=== PATIENT | male | born 1995 | race Caucasian/White ===

== ENCOUNTER 2019-10-08 06:24 | Day surgery (SDC) | payer BC ==
[2019-10-01 14:40] VITALS: BMI 39.5
--- NOTE | 2019-10-07 14:25 | HP ---
HISTORY OF PRESENT ILLNESS: Mr. Giles is a 24-year-old man here today for evaluation of roughly six weeks worth of severe lower back pain that radiates into the left lower extremity when sitting or standing for more than a few minutes, it became severe enough that as of August 21 he stopped working. He has treated this with time and recently with epidural steroid injections which provided momentary relief but still is in significant pain. MRI from the [facility] reveals a large left mediated central disk herniation at L5 that encompasses roughly 40% of the spinal canal at this level and well explains his symptoms. PAST MEDICAL HISTORY: Significant for chronic pain, but no other major medical problems. PAST SURGICAL HISTORY: Jaw surgery to correct an underbite. CURRENT MEDICATIONS: Medrol and Tylenol No.3. ALLERGIES: NO KNOWN DRUG ALLERGIES. PHYSICAL EXAMINATION: GENERAL: The patient is alert and oriented x3, but has a severely antalgic gait favoring the left lower extremity. Positive straight leg raise is avid. Lower extremity motor exam, however, is normal. He has 5/5 strength in all muscle movements of bilateral lower extremities including knee extension, knee flexion, or plantar and dorsiflexion of the ankle. No obvious sensory disturbance when grossly tested. ASSESSMENT: Lumbar disk herniation and radiculopathy. PLAN: Dr. Hawthorne met with the patient, reviewed imaging, advocated for left L5 diskectomy. He explained to the patient the risks, benefits, and alternatives to the procedure. The patient expressed understanding and elected to move forward with surgery as discussed. I do believe the patient is mentally competent and capable of making medical decisions for himself. We will move forward with surgery as planned. Job ID: [id number]
[2019-10-08] MEDS ORDERED: Lidocaine 1% w/Epinephrine 1:100K 20 ML VIAL ONE (06:32)
[2019-10-08] MEDS ORDERED: Bupivacaine PF 0.5% 30 ML VIAL ONE (06:32)
[2019-10-08] MEDS ORDERED: Lidocaine 2% Jelly 5 ML TUBE ONE ×2 (06:32→07:09)
[2019-10-08] MEDS ORDERED: EPINEPHrine 1 MG/ML AMP ONE (06:32)
[2019-10-08] MEDS ORDERED: Sodium Chloride 0.9% 0 ML ONE (07:09)
[2019-10-08] MEDS ORDERED: Fentanyl 100 MCG/2 ML VIAL ONE ×4 (07:09→10:50)
[2019-10-08] MEDS ORDERED: PROPOFOL 200 MG/20 ML VIAL ONE (10:10)
[2019-10-08] MEDS ORDERED: Ondansetron PF 4 MG/2 ML Vial ONE (10:10)
[2019-10-08] MEDS ORDERED: Lidocaine 1% PF 5 ML VIAL ONE (10:10)
[2019-10-08] MEDS ORDERED: Glycopyrrolate 0.2 MG/ML 5 ML SYRINGE ONE (10:10)
[2019-10-08] MEDS ORDERED: Rocuronium Bromide 10 MG/ML (10ML VIAL) ONE (10:10)
[2019-10-08] MEDS ORDERED: Ketorolac Tromethamine 30 MG/ML VIAL ONE (10:10)
[2019-10-08] MEDS ORDERED: Dexamethasone 20 MG/5 ML VIAL ONE (10:10)
[2019-10-08] MEDS ORDERED: Tamsulosin HCl 0.4 MG CAP ONE (10:22)
[2019-10-08] MEDS ORDERED: HYDROcodone/Acetaminophen 5/325 mg Tablet ONE (12:52)
--- NOTE | 2019-10-08 13:17 | OP ---
DATE OF PROCEDURE: 10/08/2019 MITER SAWYER: Hong Valenzuela PA-C INDICATION: Pain. DIAGNOSIS: Lumbar radiculopathy. PROCEDURE PERFORMED: Left L5 diskectomy. ANESTHESIA: General. DESCRIPTION OF PROCEDURE: The patient was brought into the operating room and placed under general anesthesia. He was flipped from the supine to prone position on the operating room table. A linear incision was planned over the L5-S1 segment. After prepping and draping and after an appropriate perioperative pause, the incision was created. The soft tissues were swept left of midline. Self-retaining retractors were placed in the wound for optimal exposure. After confirming the appropriate level with C-arm fluoroscopy, high-speed cutting drill bit as well as 2 and 3 mm Kerrisons were used to perform a laminectomy along the inferior aspect of L5 and superior aspect of S1. The descending S1 nerve root was identified, mobilized medially, where a large protuberant disk mass was identified. An 11-blade knife was used to perform an annulotomy, where the disk material was removed. After decompressing the lateral recess and descending S1 nerve root, the wound was irrigated. Hemostasis was maintained throughout. The wound was then closed in anatomic layers and a pressure dressing was applied. There were no known procedural complications. Job ID: [id number]
[2019-10-08] MEDS ORDERED: Cephalexin 250 MG CAP PO SCH (13:45)
== END 2019-10-08 13:50 | disposition home or self-care (01) ==
LOC: SDC 06:24
PROVIDERS: ATTEND Neurological Surgery
PROC: 0ST20ZZ Resection of Lumbar Vertebral Disc, Open Approach (ICD-10-PCS; principal; 2019-10-08)
DX: M51.16 Intervertebral disc disorders with radiculopathy, lumbar region (principal); G89.29 Other chronic pain; Z87.891 Personal history of nicotine dependence
CPT/HCPCS: 76000; J0171; J1100; J1885; J2001; J2405; J2704; J3010; J3490; S0020